=== PATIENT | female | born 1980 | race Hispanic/Latino ===

== ENCOUNTER 2021-11-23 17:12 | Emergency (ER) | payer OTHER ==
[2021-11-23] MEDS ORDERED: Bacitracin 1 PK ONE (17:34)
== END 2021-11-23 17:45 | disposition home or self-care (01) ==
LOC: BURERS 17:12
DX: T23.071A Burn of unspecified degree of right wrist, initial encounter (principal); E78.5 Hyperlipidemia, unspecified; Z79.899 Other long term (current) drug therapy; X11.8XXA Contact with other hot tap-water, initial encounter
CPT/HCPCS: 99283